=== PATIENT | female | born 1980 | race Caucasian/White ===

== ENCOUNTER 2016-08-09 20:15 | Emergency (ER) | payer MEDICAID ==
[~2016-08-09] VITALS: Ht 162.6 cm; Wt 69.0 kg
[~2016-08-09 20:15] MED LIST: PREN1TAB49 PO
[2016-08-09 20:31] VITALS: Ht 162.6 cm; Wt 69.0 kg
[2016-08-09 21:27] LABS: ADD SCAN DIFF NO
[2016-08-09 21:29] LABS: BASOPHILS % 0.4 % (0.0-2.0); EOSINOPHILS # 0.2 10^3/ul (0.0-0.5); EOSINOPHILS % 2.3 % (0.0-7.0); HEMATOCRIT 38.4 % (37.0-47.0); HEMOGLOBIN 11.8 g/dl (12.0-16.0); LYMPHOCYTES # 2.6 10^3/ul (0.8-2.9); LYMPHOCYTES % 27.4 % (15.0-51.0); MEAN CORPUSCULAR HEMOGLOBIN 25.6 pg (29.0-33.0); MEAN CORPUSCULAR HGB CONC 30.7 g/dl (32.0-37.0); MEAN CORPUSCULAR VOLUME 83.3 fl (82.0-101.0); MEAN PLATELET VOLUME 9.7 fl (7.4-10.4); MONOCYTE # 0.6 10^3/ul (0.3-0.9); NEUTROPHILS % 63.6 % (39.0-77.0); PLATELET COUNT 232 10^3/UL (140-415); RED BLOOD COUNT 4.61 10^6/ul (4.20-5.40); RED CELL DISTRIBUTION WIDTH 14.6 % (11.5-14.5); WHITE BLOOD COUNT 9.5 10^3/ul (4.8-10.8)
[2016-08-09 21:45] LABS: ALBUMIN 4.5 g/dl (3.3-4.9)
[2016-08-09 21:46] LABS: POTASSIUM 3.9 mmol/L (3.5-5.1)
[2016-08-09 21:48] LABS: ALBUMIN/GLOBULIN RATIO 1.15; BILIRUBIN,INDIRECT 0.3 mg/dl (0-1.1); BILIRUBIN,TOTAL 0.3 mg/dl (0.2-1.3); CREATININE 0.85 mg/dl (0.44-1.00); TOTAL PROTEIN 8.4 g/dl (6.1-8.1)
[2016-08-09 21:49] LABS: CALCIUM 9.2 mg/dl (8.4-10.2)
[2016-08-09 22:06] LABS: ADD UMIC YES; URINE BILIRUBIN (Dip) NEGATIVE (NEGATIVE); URINE BLOOD (Dip) NEGATIVE (NEGATIVE); URINE COLOR LT. YELLOW (YELLOW); URINE GLUCOSE (Dip) NEGATIVE (NEGATIVE); URINE KETONES (Dip) NEGATIVE (NEGATIVE); URINE LEUKOCYTE ESTERASE (Dip) TRACE (NEGATIVE); URINE NITRITE (Dip) NEGATIVE (NEGATIVE); URINE TOTAL PROTEIN (Dip) NEGATIVE (NEGATIVE); URINE UROBILINOGEN (Dip) 0.2 E.U./dL (0.1-1.0)
[2016-08-09 22:21] LABS: SQUAMOUS EPITHELIAL CELL,UR MODERATE; URINE RBCS NONE SEEN /HPF (0)
[2016-08-09 22:22] LABS: BACTERIA,URINE MODERATE
--- NOTE | 2016-08-09 22:32 | ERD ---
ER Documentation Chief Complaint Date/Time DATE: 08/09/16 TIME: 22:30 Chief Complaint Pt with R sided AP that radiates to her back X 2 months. HPI Patient is a 36-year-old female who presents to the ED with right upper quadrant pain and bilateral pelvic pain 2 months. She states that she has the pain and it comes and goes. She states that she would like to get checked for her gallbladder. She states that she got a massage today and her masseuse that that she might have stones in her gallbladder. She also complains of nausea that comes and goes. Denies vomiting or diarrhea. Last bowel movement was today. She does denies a decrease in appetite and is tolerating food and fluids. Denies fever or chills. She is not taking any medication for symptoms. She denies dysuria urgency. She denies hematuria. She states that she is sexually active with her . Denies vaginal discharge. No history of STDs. ROS All systems reviewed and are negative except as per history of present illness. Medications Home Meds Active Scripts Naproxen* (Naprosyn*) 500 Mg Tablet, 500 MG PO BID Y for PAIN AND/OR INFLAMMATION, #30 TAB Prov:EVELIN RODRIGUEZ PA-C 08/09/16 Ondansetron Hcl* (Zofran*) 4 Mg Tablet, 4 MG PO Q6H for NAUSEA AND/OR VOMITING, #30 TAB Prov:EVELIN RODRIGUEZ PA-C 08/09/16 Reported Medications Vits W-Ca,Fe,Fa(<1MG) () 1 Tab Tablet, 1 TAB PO DAILY 02/07/11 Allergies Allergies: Coded Allergies: No Known Drug Allergies (Verified Allergy, 02/07/11) PMhx/Soc Medical and Surgical Hx: pt denies Medical Hx History of Surgery: Yes (C SECTION X 1) Anesthesia Reaction: No Hx Neurological Disorder: No Hx Respiratory Disorders: No Hx Cardiac Disorders: No Hx Psychiatric Problems: No Hx Miscellaneous Medical Probl: No Hx Alcohol Use: No Hx Substance Use: No Hx Tobacco Use: No Smoking Status: Never smoker FmHx Family History: No coronary disease, No diabetes, No other Physical Exam Vitals Vital Signs Date Time Temp Pulse Resp B/P Pulse Ox O2 Delivery O2 Flow Rate FiO2 08/09/16 20:31 98.8 80 18 141/67 99 Physical Exam GENERAL: Well-developed, well-nourished female. Appears in no acute distress. HEAD: Normocephalic, atraumatic. EYES: Pupils are equally reactive bilaterally. EOMs grossly intact. No conjunctival erythema. ENT: Moist mucous membranes. No uvula deviation. No kissing tonsils. No exudates. NECK: Supple. No lymphadenopathy or thyromegaly. No meningismus. negative kernig. negative brudinski. LUNG: Clear to auscultation bilaterally. No rhonchi, wheezing, rales or coarse breath sounds. HEART: Regular rate and rhythm. No murmurs, rubs or gallops. ABDOMEN: No scars, ecchymosis or rashes noted. Soft, and nondistended. Positive bowel sounds in all four quadrants. No rebound tenderness, no guarding. (-) McBurneys point tenderness. No CVA tenderness. Mild right upper quadrant tenderness. Mild bilateral pelvic tenderness. BACK: No midline tenderness. Extremities: Equal pulses bilaterally. No peripheral clubbing, cyanosis or edema. No unilateral leg swelling. NEUROLOGIC: Alert and oriented. Moving all four extremities. 5/5 strength in all extremities. Normal speech. Steady gait. SKIN: Normal color. Warm and dry. No rashes or lesions. Capillary refill < 2 seconds Result Diagram: 08/09/16212208/09/162122 Results 24 hrs Laboratory Tests Test 08/09/16 21:17 08/09/16 21:23 Urine Color LT. YELLOW Urine Clarity CLOUDY Urine pH 6.5 Urine Specific [place] <=1.005 Urine Ketones NEGATIVE Urine Nitrite NEGATIVE Urine Bilirubin NEGATIVE Urine Urobilinogen 0.2 E.U./dL Urine Leukocyte Esterase TRACE Urine Microscopic RBC NONE SEEN/HPF Urine Microscopic WBC 2-5/HPF Urine Squamous Epithelial Cells MODERATE Urine Bacteria MODERATE Urine Hemoglobin NEGATIVE Urine Glucose NEGATIVE% Urine Total Protein NEGATIVE White Blood Count 9.510^3/ul Red Blood Count 4.6110^6/ul Hemoglobin 11.8g/dl Hematocrit 38.4% Mean Corpuscular Volume 83.3fl Mean Corpuscular Hemoglobin 25.6pg Mean Corpuscular Hemoglobin Concent 30.7g/dl Red Cell Distribution Width 14.6% Platelet Count 61841^3/UL Mean Platelet Volume 9.7fl Neutrophils % 63.6% Lymphocytes % 27.4% Monocytes % 6.0% Eosinophils % 2.3% Basophils % 0.4% Nucleated Red Blood Cells % 0.0/100WBC Neutrophils # 6.010^3/ul Lymphocytes # 2.610^3/ul Monocytes # 0.610^3/ul Eosinophils # 0.210^3/ul Basophils # 0.010^3/ul Nucleated Red Blood Cells # 0.010^3/ul Sodium Level 143mmol/L Potassium Level 3.9mmol/L Chloride Level 101mmol/L Carbon Dioxide Level 27mmol/L Anion Gap 19 Blood Urea Nitrogen 14mg/dl Creatinine 0.85mg/dl Glucose Level 100mg/dl Calcium Level 9.2mg/dl Total Bilirubin 0.3mg/dl Direct Bilirubin 0.00mg/dl Indirect Bilirubin 0.3mg/dl Aspartate Amino Transf (AST/SGOT) 34IU/L Alanine Aminotransferase (ALT/SGPT) 43IU/L Alkaline Phosphatase 118IU/L Total Protein 8.4g/dl Albumin 4.5g/dl Globulin 3.90g/dl Albumin/Globulin Ratio 1.15 Lipase 58U/L Procedures/MDM ER COURSE: I kept the patient and/or family informed of laboratory and diagnostic imaging results throughout the emergency room course. EKG, MONITORS, & DIAGNOSTIC IMAGING: [place] [id number] Radiology Main Line: [phone] DIAGNOSTIC IMAGING REPORT Patient: JENNIFER WYATT : 1980 Age: 36 Sex: F MR #: [id number] DOS: 08/09/16 [facility] Ordering MD: EVELIN RODRIGUEZ PA-C Location: [facility] Room/Bed: PROCEDURE: Pelvic ultrasound. CLINICAL INDICATION: Pelvic pain TECHNIQUE: Meyers scale, color doppler, spectral doppler ultrasound of the pelvis was performed with transabdominal and transvaginal transducers. COMPARISON: No prior studies are available for comparison. FINDINGS: Uterus: Position: Anteverted. Normal myometrial echogenicity. Normal appearance of the endometrium. Ovaries: Normal sized ovaries with preserved blood flow. No adnexal masses. Free fluid: None. Measurements: Endometrium: 1.4 cm Uterus: 8.7 x 4.6 x 5.2 cm Right ovary: 1.6 x 1.1 x 1.7 cm Left ovary: 1.7 x 1.5 x 1.9 cm IMPRESSION: Normal examination. RPTAT: AADD .Keith Roman MD, MD Date Time Electronically viewed and signed by .Keith Roman MD, MD on 08/09/2016 23:08 .B/ CC: EVELIN RODRIGUEZ PA-C [place] [address] Radiology Main Line: [phone] DIAGNOSTIC IMAGING REPORT Patient: JENNIFER WYATT : 1980 Age: 36 Sex: F MR #: [id number] DOS: 08/09/16 2108 Ordering MD: EVELIN RODRIGUEZ PA-C Location: [facility] Room/Bed: PROCEDURE: US Abdomen (right upper quadrant). CLINICAL INDICATION: Right upper quadrant abdomen pain. TECHNIQUE: Multiple real-time longitudinal and transverse images of the right upper quadrant of the abdomen were acquired utilizing a curved array transducer. Images were reviewed on a high-resolution PACS workstation. COMPARISON: None FINDINGS: The liver is normal in size and echogenicity. There is no focal hepatic lesion. Color Doppler and pulsed Doppler sonography demonstrate normal antegrade flow in the portal vein. The gallbladder is normal with no stones or wall thickening. There is no pericholecystic fluid collection. The bile ducts are normal with the common bile duct measuring 3.2 mm in diameter. The visualized portions of the pancreas are unremarkable with obscuration of the tail of the pancreas. No free fluid is present. The right kidney measures 9.8 cm. There is normal echogenicity of the right kidney. There is no perinephric fluid collection. No hydronephrosis, mass, or calculus is seen. IMPRESSION: 1. Unremarkable right upper quadrant abdomen ultrasound. RPTAT: QQ .Ashok Palomares MD, Date Time Electronically viewed and signed by .Ashok Palomares MD, on 08/09/2016 22:47 .R/ CC: EVELIN RODRIGUEZ PA-C LAB INTERPRETATION: CBC showed no evidence of systemic infection or severe anemia. CMP showed no evidence of electrolyte abnormalities, severe acidosis, alkalosis, renal failure , or liver disease. Lipase showed no evidence of acute pancreatitis. UA showed ltrace leukocytes, no nitrites or hematuria. Urine test was negative. MEDICAL DECISION MAKING: This is a 36-year-old female who presents with abdominal pain and pelvic pain 2 months. Vital signs were reviewed. Patient is afebrile. Patient is not hypoxic. Patient is not toxic or ill-appearing. Ultrasound is read by radiologist is unremarkable. Patient has abdominal pain of unknown etiology. Low suspicion for ACS, AAA, perforated ulcer, bowel obstruction, cholecystitis, choledocholithiasis, cholangitis, pancreatitis, hepatic abscess, appendicitis, diverticulitis, gastroenteritis, hepatitis, peptic ulcer disease, HELLP syndrome. Low suspicion for ovarian torsion, PID, tuboovarian abscess, ectopic , bowel obstruction, pyelonephritis, UTI, appendicitis, cervicitis, septic , molar , HELLP syndrome, preeclampsia, eclampsia, placenta previa, placenta abruptia. DISCHARGE: At this time, patient is stable for discharge and outpatient management with no new complaints during the ER course. Patient was sent home with Sandy and Bhavin and to follow-up with a specialist for further evaluation of her chronic abdominal pain.. Patient will be discharged home with instructions to recheck for new or worsening symptoms such as fever, nausea, weakness, LOC and to follow up with primary care in the next 1-2 days. Patient was advised to return to the ER for any new or worsening symptoms. Plan was discussed and patient and/ or family understands and agrees. Home instructions were given. Departure Diagnosis: Primary Impression: Abdominal pain Abdominal location: unspecified location Qualified Code: R10.9 - Abdominal pain, unspecified location Condition: Stable EVELIN RODRIGUEZ PA-C Aug 09, 2016 22:32
--- NOTE | 2016-08-09 22:47 | RADRPT ---
PROCEDURE: US Abdomen (right upper quadrant). CLINICAL INDICATION: Right upper quadrant abdomen pain. TECHNIQUE: Multiple real-time longitudinal and transverse images of the right upper quadrant of th e abdomen were acquired utilizing a curved array transducer. Images were reviewed on a high-resoluti on PACS workstation. COMPARISON: None FINDINGS: The liver is normal in size and echogenicity. There is no focal hepatic lesion. Color Doppler and pulsed Doppler sonography demonstrate normal a ntegrade flow in the portal vein. The gallbladder is normal with no stones or wall thickening. There is no pericholecystic fluid [place] ection. The bile ducts are normal with the common bile duct measuring 3.2 mm in diameter. The visualized portions of the pancreas are unremarkable with obscuration of the tail of the pancrea s. No free fluid is present. The right kidney measures 9.8 cm. There is normal echogenicity of the right kidney. There is no p erinephric fluid collection. No hydronephrosis, mass, or calculus is seen. IMPRESSION: 1. Unremarkable right upper quadrant abdomen ultrasound. RPTAT: QQ .Ashok Palomares MD, MD Date Time Electronically viewed and signed by .Ashok Palomares MD, on 08/09/2016 22:47 .R/
[2016-08-09] MEDS ORDERED: ONDA4TAB8 PO (22:55)
[2016-08-09] MEDS ORDERED: NAPR-260 PO (22:56)
--- NOTE | 2016-08-09 23:08 | RADRPT ---
PROCEDURE: Pelvic ultrasound. CLINICAL INDICATION: Pelvic pain TECHNIQUE: Meyers scale, color doppler, spectral doppler ultrasound of the pelvis was performed with transabdominal and transvaginal transducers. COMPARISON: No prior studies are available for comparison. FINDINGS: Uterus: Position: Anteverted. Normal myometrial echogenicity. Normal appearance of the endometrium. Ovaries: Normal sized ovaries with preserved blood flow. No adnexal masses. Free fluid: None. Measurements: Endometrium: 1.4 cm Uterus: 8.7 x 4.6 x 5.2 cm Right ovary: 1.6 x 1.1 x 1.7 cm Left ovary: 1.7 x 1.5 x 1.9 cm IMPRESSION: Normal examination. RPTAT: AADD .Keith Roman MD, Date Time Electronically viewed and signed by .Keith Roman MD, on 08/09/2016 23:08 .B/
[2016-08-09 23:18] VITALS: BP 127/62; PULSE 71; RESP 17; TEMP 98.3
== END 2016-08-09 23:18 | disposition home or self-care (01) ==
LOC: FTE 20:15
DX: R10.11 Right upper quadrant pain (principal); R11.0 Nausea
CPT/HCPCS: 36415; 76705; 76830; 76856; 80053; 81001; 81003; 83690; 85025